=== PATIENT | male | born 1980 | race Caucasian/White ===

== ENCOUNTER → 2017-07-05 | Outpatient (CLI) | payer OTHER ==
[~2017-07-05] VITALS: Ht 182.9 cm; Wt 93.0 kg
[~2017-07-05] MED LIST: ATARAX25 MG PO; BENADRYL50 MG PO; FLEXERIL 10 MG PO; GILTUSS TR TAB1 EACH PO; KETO10TA2 PO; MEDROL4 MG PO; VOLTAREM 50 MG PO; ZITHROMAX200 MG PO; ZYRTEC10 MG PO
== END | disposition home or self-care (01) ==
LOC: TOM → PPHC 18:32
DX: R42 Dizziness and giddiness (principal)

== ENCOUNTER → 2017-07-06 11:06 | Outpatient (CLI) | payer OTHER | END | disposition home or self-care (01) | LOC: LAB 11:06 | DX: R42 Dizziness and giddiness (principal); R51 Headache; Z15.89 Genetic susceptibility to other disease ==

== ENCOUNTER 2018-04-16 11:29 | Outpatient (CLI) | payer OTHER | END 2018-04-16 11:35 | disposition home or self-care (01) | LOC: LAB 11:29 | DX: Z11.3 Encounter for screening for infections with a predominantly sexual mode of transmission (principal) ==

== ENCOUNTER 2018-11-18 14:50 | Outpatient (CLI) | payer OTHER | END 2018-11-18 19:11 | disposition home or self-care (01) | LOC: LAB 14:50 | DX: J11.1 Influenza due to unidentified influenza virus with other respiratory manifestations (principal); B96.0 Mycoplasma pneumoniae [M. pneumoniae] as the cause of diseases classified elsewhere ==

== ENCOUNTER 2019-06-24 17:37 | Outpatient (CLI) | payer OTHER | END 2019-06-24 17:57 | disposition home or self-care (01) | LOC: RAD 17:37 | DX: M54.2 Cervicalgia (principal); M54.89 Other dorsalgia ==

== ENCOUNTER 2019-08-21 11:21 | Outpatient (CLI) | payer OTHER | END 2019-08-21 15:49 | disposition home or self-care (01) | LOC: LAB 11:21 | DX: J11.1 Influenza due to unidentified influenza virus with other respiratory manifestations (principal) ==

== ENCOUNTER 2019-12-02 14:20 | Outpatient (CLI) | payer OTHER | END 2019-12-02 14:31 | disposition home or self-care (01) | LOC: LAB 14:20 | PROVIDERS: ATTEND Radiology Diagnostic Radiology | DX: Z03.818 Encounter for observation for suspected exposure to other biological agents ruled out (principal); Z20.828 Contact with and (suspected) exposure to other viral communicable diseases ==

== ENCOUNTER 2020-01-02 09:43 | Outpatient (CLI) | payer OTHER | END 2020-01-02 16:26 | disposition home or self-care (01) | LOC: LAB 09:43 | DX: Z20.828 Contact with and (suspected) exposure to other viral communicable diseases (principal) ==

== ENCOUNTER 2020-01-02 10:26 | Outpatient (CLI) | payer OTHER | END 2020-01-02 15:41 | disposition home or self-care (01) | LOC: TOM 10:26 | PROVIDERS: ATTEND Radiology Diagnostic Radiology | DX: Z03.818 Encounter for observation for suspected exposure to other biological agents ruled out (principal); Z20.828 Contact with and (suspected) exposure to other viral communicable diseases ==

== ENCOUNTER 2020-03-12 10:18 | Outpatient (CLI) | payer OTHER | END 2020-03-12 15:00 | disposition home or self-care (01) | LOC: LAB 10:18 | PROVIDERS: ATTEND Radiology Diagnostic Radiology | DX: Z20.828 Contact with and (suspected) exposure to other viral communicable diseases (principal) ==

== ENCOUNTER → 2020-05-11 16:00 | Outpatient (CLI) | payer OTHER | END | disposition home or self-care (01) | LOC: LAB 05-10 14:12 | DX: Z20.828 Contact with and (suspected) exposure to other viral communicable diseases (principal) ==

== ENCOUNTER → 2020-05-20 | Outpatient (CLI) | payer OTHER | END | disposition home or self-care (01) | LOC: PPH VACUNA 10:20 | DX: Z23 Encounter for immunization (principal) ==

== ENCOUNTER 2020-09-17 10:25 | Outpatient (CLI) | payer OTHER | END 2020-09-17 16:19 | disposition home or self-care (01) | LOC: LAB 10:25 | PROVIDERS: ATTEND Radiology Diagnostic Radiology | DX: Z11.3 Encounter for screening for infections with a predominantly sexual mode of transmission (principal) ==

== ENCOUNTER 2020-12-10 07:41 | Outpatient (CLI) | payer OTHER | END 2020-12-10 15:00 | disposition home or self-care (01) | LOC: LAB 07:41 | PROVIDERS: ATTEND Internal Medicine Hematology & Oncology | DX: D50.8 Other iron deficiency anemias (principal); I10 Essential (primary) hypertension; E11.9 Type 2 diabetes mellitus without complications; E78.2 Mixed hyperlipidemia; E03.8 Other specified hypothyroidism; D51.3 Other dietary vitamin B12 deficiency anemia; R97.0 Elevated carcinoembryonic antigen [CEA]; R97.21 Rising PSA following treatment for malignant neoplasm of prostate ==

== ENCOUNTER 2021-01-17 07:19 | Emergency (ER) | payer OTHER ==
[~2021-01-17] VITALS: Ht 185.4 cm; Wt 95.3 kg
[2021-01-17] MEDS ORDERED: ZITHROMAX500 MG PO (12:25)
== END 2021-01-17 12:28 | disposition home or self-care (01) ==
LOC: ER 07:19
DX: B34.9 Viral infection, unspecified (principal); Z03.818 Encounter for observation for suspected exposure to other biological agents ruled out

== ENCOUNTER 2022-08-17 13:02 | Outpatient (CLI) | payer OTHER ==
[~2022-08-17 13:02] MED LIST changes: +ZITHROMAX500 MG PO
== END 2022-08-17 13:15 | disposition home or self-care (01) ==
LOC: PPH VACUNA 13:02
PROVIDERS: ATTEND Emergency Medicine Pediatric Emergency Medicine
DX: Z23 Encounter for immunization (principal)